=== PATIENT | male | born 1960 | race Two or more races ===

== ENCOUNTER 2017-06-04 13:23 | Emergency (ER) | payer BC, OTHER ==
[2017-06-04 13:36] VITALS: TEMP 98.6; BMI 25.7
--- NOTE | 2017-06-04 13:40 | PDOC ---
History of Present Illness - General History Source: Patient Exam Limitations: No Limitations - History of Present Illness Initial Comments: 06/04/17 13:47 The patient is a 56 year old male, with a significant past medical history of HTN, who presents to the emergency department with cough, fever, nausea, and vomiting since Monday. The patient reports seeing his doctor the same day of the onset of his symptoms and being prescribed antibiotics. He reports since having ongoing coughing and developing chest pain on monday. He describes his pain as a discomfort, ranking his chest pain a 6/10 in pain intensity. He denies any recent fevers, chills, headache or dizziness. He denies any recent nausea, vomit, diarrhea or constipation. He denies any recent shortness of breath. He denies any recent dysuria, frequency, urgency or hematuria. Allergies: NKA Past surgical history: None reported. Social History: Nonsmoker. Denies EtOH use and recreational drug use. Primary Care Physician: <Rom Barajas - Last Filed: 06/04/17 13:49> <Alis Beltran - Last Filed: 06/04/17 15:55> - General Chief Complaint: Chest Pain Stated Complaint: CHEST PAIN Time Seen by Provider: 06/04/17 13:40 Past History <Rom Barajas - Last Filed: 06/04/17 13:49> - Past Medical History COPD: No - Suicide/Smoking/Psychosocial Hx Smoking Status: No Smoking History: Never smoked Number of Cigarettes Smoked Daily: 0 Hx Alcohol Use: No Drug/Substance Use Hx: No Substance Use Type: None <Alis Beltran - Last Filed: 06/04/17 15:55> - Past Medical History Allergies/Adverse Reactions: Allergies Allergy/AdvReac Type Severity Reaction Status Date / Time No Known Allergies Allergy Verified 06/04/17 13:36 Home Medications: Ambulatory Orders Losartan Potassium [Cozaar -] 50 mg PO DAILY 06/04/17 Review of Systems - Review of Systems Comments:: 06/04/17 13:47 GENERAL/CONSTITUTIONAL: +fever and chills. No weakness. HEAD, EYES, EARS, NOSE AND THROAT: No change in vision. No ear pain or discharge. No sore throat. CARDIOVASCULAR: + chest pain or shortness of breath. RESPIRATORY: No cough, wheezing, or hemoptysis. GASTROINTESTINAL: +nausea, vomiting No diarrhea or constipation. GENITOURINARY: No dysuria, frequency, or change in urination. MUSCULOSKELETAL: No joint or muscle swelling or pain. No neck or back pain. SKIN: No rash NEUROLOGIC: No headache, vertigo, loss of consciousness, or change in strength/ sensation. ENDOCRINE: No increased thirst. No abnormal weight change. HEMATOLOGIC/LYMPHATIC: No anemia, easy bleeding, or history of blood clots. ALLERGIC/IMMUNOLOGIC: No hives or skin allergy <Rom Barajas - Last Filed: 06/04/17 13:49> *Physical Exam - Vital Signs Last Vital Signs Temp Pulse Resp BP Pulse Ox 98.6 F 74 20 156/95 98 06/04/17 13:32 06/04/17 13:32 06/04/17 13:32 06/04/17 13:32 06/04/17 13:32 - Physical Exam Comments: 06/04/17 13:49 GENERAL: Awake, alert, and fully oriented, in no acute distress HEAD: No signs of trauma EYES: PERRLA, EOMI, sclera anicteric, conjunctiva clear ENT: Auricles normal inspection, hearing grossly normal, nares patent, oropharynx clear without exudates. Moist mucosa NECK: Normal ROM, supple, no lymphadenopathy, JVD, or masses LUNGS: Breath sounds equal, clear to auscultation bilaterally. No wheezes, and no crackles HEART: Regular rate and rhythm, normal S1 and S2, no murmurs, rubs or gallops ABDOMEN: Soft, nontender, normoactive bowel sounds. No guarding, no rebound. No masses EXTREMITIES: Normal range of motion, no edema. No clubbing or cyanosis. No cords, erythema, or tenderness NEUROLOGICAL: Cranial nerves II through XII grossly intact. Normal speech, normal gait SKIN: Warm, Dry, normal turgor, no rashes or lesions noted. <Rom Barajas - Last Filed: 06/04/17 13:49> - Vital Signs Last Vital Signs Temp Pulse Resp BP Pulse Ox 98.6 F 74 20 156/95 98 06/04/17 13:32 06/04/17 13:32 06/04/17 13:32 06/04/17 13:32 06/04/17 13:32 <Alis Beltran - Last Filed: 06/04/17 15:55> ED Treatment Course - LABORATORY CBC & Chemistry Diagram: 06/04/17 14:51 06/04/17 13:50 <Ails Beltran - Last Filed: 06/04/17 15:55> Medical Decision Making - Medical Decision Making 06/04/17 13:59 Pt presents to the ED complaining of a 5 day history of intermittent chest discomfort. Cannot identify aggravating or alieviating factors. Pain is moderate in severity and non radiating. Became ill 6 days ago with fevers, chills and prodcutive cough. Then presented to his PMD who treated him with levaquin. The fevers and chills have now resolved, butthe chest discomfort is persistent, so patient presented to the ED. Will check CXR to evaluate for persistent PNA. EKG shows no evidence of ischemia, but will check CE to rule out ACS. Pain is very atypical of cardiac disease--if labs are within normal limits will discharge home. 06/04/17 15:52 Labs and CXR are negative. HEART score is 2. Will discharge patient home with instructions to follow up with his PMD within one week. <Alis Beltran - Last Filed: 06/04/17 15:55> *DC/Admit/Observation/Transfer - Attestations Scribe Attestion: 06/04/17 13:47 Documentation prepared by Rom Barajas, acting as medical biller coder for Alis Beltran MD. <Rom Barajas - Last Filed: 06/04/17 13:49> - Discharge Dispostion Admit: No <Alis Beltran - Last Filed: 06/04/17 15:55> Diagnosis at time of Disposition: Chest pain Qualifiers: Chest pain type: precordial pain Qualified Code(s): R07.2 - Precordial pain - Discharge Dispostion Disposition: HOME Condition at time of disposition: Good - Patient Instructions Printed Discharge Instructions: DI for Chest Pain Additional Instructions: Return to the ED for severe chest pain or shortness of breath, recurrrent fevers , persistent shortness of breath. Make sure that you follow up with your PMD this week.
--- NOTE | 2017-06-04 14:44 | EKG ---
Test Reason : Blood Pressure : / mmHG Vent. Rate : 073 BPM Atrial Rate : 073 BPM P-R Int : 150 ms QRS Dur : 078 ms QT Int : 378 ms P-R-T Axes : 042 042 004 degrees QTc Int : 416 ms NORMAL SINUS RHYTHM POSSIBLE LEFT ATRIAL ENLARGEMENT NONSPECIFIC T WAVE ABNORMALITY ABNORMAL ECG NO PREVIOUS ECGS AVAILABLE CLINICAL CORRELATION IS RECOMMENDED Confirmed by ARUNA RUANO MD ([id number]) on 06/04/2017 2:44:16 PM Referred By: Confirmed By:ARUNA RUANO MD
[2017-06-04 14:45] LABS: ALBUMIN 3.6 g/dl (3.4-5.0); ANION GAP 8 (8-16); BILIRUBIN,TOTAL 0.5 mg/dL (0.2-1.0); BLOOD UREA NITROGEN 10 mg/dL (7-18); CALCIUM 7.9 mg/dL (8.5-10.1); CHLORIDE 104 mmol/L (98-107); CO2 26 mmol/L (21-32); CREATININE 0.9 mg/dL (0.7-1.3); GLUCOSE,RANDOM 113 mg/dL (74-106); SGPT/ALT 41 U/L (12-78); SODIUM 138 mmol/L (136-145); TOT PROT 6.7 g/dl (6.4-8.2)
[2017-06-04 14:53] LABS: ALK PHOS 48 U/L (45-117)
[2017-06-04 14:54] LABS: N-TERMINAL BNP 26.44 pg/ml (5-125); POTASSIUM 3.6 mmol/L (3.5-5.1); SGOT/AST 29 U/L (15-37)
[2017-06-04 15:08] LABS: BASO % 1.1 % (0-2.0); EOS % 3.6 % (0-4.5); HEMOGLOBIN 15.4 GM/dL (11.7-16.9); LYMPH % 34.2 % (8-40); MCH 29.9 pg (25.7-33.7); MCHC 33.6 g/dl (32.0-35.9); MEAN CELL VOLUME 89.1 fl (80-96); MEAN PLT VOLUME 9.4 fl (7.5-11.1); MONO % 17.2 % (3.8-10.2); NEUT % 43.9 % (42.8-82.8); PLATELET COUNT 114 K/MM3 (134-434); RBC 5.16 M/mm3 (4.00-5.60); RDW 12.8 % (11.9-15.9)
[2017-06-04 16:24] VITALS: BP 135/78; PULSE 69
== END 2017-06-04 16:20 | disposition home or self-care (01) ==
LOC: JER 13:23
DX: R07.2 Precordial pain (principal)
CPT/HCPCS: 36415; 71020-TC; 80053; 82550; 83880; 84484; 85025; 93005; 93010; 99283-25

== ENCOUNTER 2018-08-29 13:41 | Emergency (ER) | payer OTHER ==
[2018-08-29 14:05] VITALS: BP 168/84; PULSE 69; TEMP 98.2; BMI 25.7
--- NOTE | 2018-08-29 14:06 | PDOC ---
Rapid Medical Evaluation Time Seen by Provider: 08/29/18 14:02 Medical Evaluation: Allergies Allergy/AdvReac Type Severity Reaction Status Date / Time No Known Allergies Allergy Verified 06/04/17 13:36 08/29/18 14:02 The patient presents to the ED for evaluation of metal in the L eye. Pt works as an low voltage electrician. Feels like something got in the eye two day ago Exam: MICAH LEE. No FB present in the L eye Orders: Nothing Pt to proceed to the ED for further evaluation Discharge Disposition - Diagnosis Left eye pain - Referrals - Patient Instructions - Post Discharge Activity
--- NOTE | 2018-08-29 15:25 | PDOC ---
History of Present Illness - General Chief Complaint: Eye Problem Stated Complaint: LT EYE INJURY Time Seen by Provider: 08/29/18 14:02 - History of Present Illness Initial Comments: 08/29/18 15:21 57-year-old male with a past medical history significant for hypertension presents for evaluation of left eye irritation. He states he was working with metal and feels he got a piece of metal stuck in his eye. No fever no visual changes just L eye irritation and tearing Past History - Past Medical History Allergies/Adverse Reactions: Allergies Allergy/AdvReac Type Severity Reaction Status Date / Time No Known Allergies Allergy Verified 08/29/18 14:05 Home Medications: Ambulatory Orders Losartan Potassium [Cozaar -] 50 mg PO DAILY 06/04/17 Tobramycin 0.3% Ophth Soln [Tobrex Ophthalmic Solution -] 1 drop OS Q4HWA 5 Days #1 bottle 08/29/18 COPD: No - Suicide/Smoking/Psychosocial Hx Smoking Status: No Smoking History: Never smoked Number of Cigarettes Smoked Daily: 0 Hx Alcohol Use: No Drug/Substance Use Hx: No Substance Use Type: None Review of Systems - Review of Systems Constitutional: No: Fever HEENTM: Yes: Tearing. No: Eye Pain, Blurred Vision, Recent change in vision, Double Vision *Physical Exam - Vital Signs Last Vital Signs Temp Pulse Resp BP Pulse Ox 98.2 F 69 18 168/84 99 08/29/18 14:03 08/29/18 14:03 08/29/18 14:03 08/29/18 14:03 08/29/18 14:03 - Physical Exam Comments: 08/29/18 15:22 HEAD: NC/AT EYES: Conjuntiva normal in the right eye injected in the left. Tetracaine drops instilled. Fluorescein stain done. No corneal abrasion or foreign body appreciated. MS: Full ROM in all joints without edema NEUROLOGIC: No gross sensory or motor deficits, NVID SKIN: Normal color and temperature no lesions or rashes Medical Decision Making - Medical Decision Making 08/29/18 15:23 No foreign body appreciated. I will give tobramycin drops and have patient follow-up with ophthalmology tomorrow. It's been 4 days at this point. *DC/Admit/Observation/Transfer Diagnosis at time of Disposition: Left eye pain, Acute allergic conjunctivitis of left eye - Discharge Dispostion Disposition: HOME Condition at time of disposition: Stable Decision to Admit order: No - Referrals Referrals: Tyrone Leigh MD [Primary Care Provider] - Bernardino Kumar MD [Non Staff, Medical] - Ivan Harvey [Non Staff, Medical] - Pedro Lui [Non Staff, Medical] - Erlin Clifford [Staff Physician] - Taniya Juarez MD [Staff Physician] - William Lazcano MD [Non Staff, Medical] - Haresh Garcia [Non Staff, Medical] - Diego Akbar [Non Staff, Medical] - Kel Belle [Non Staff, Medical] - Donna Nina DO [Non Staff, Medical] - Gabriela Hyatt MD [Non Staff, Medical] - Leah Webster MD [Staff Physician] - Julian Patino MD, MD [Non Staff, Medical] - Laurita Hicks MD [Non Staff, Medical] - Collin Cosme MD [Staff Physician] - Paige Rey MD [Non Staff, Medical] - Peter Taylor MD [Staff Physician] - Grady Teixeira MD, MD [Non Staff, Medical] - Brandi Novoa MD [Non Staff, Medical] - Deya Ureña MD [Non Staff, Medical] - Pritesh Newby MD [Non Staff, Medical] - Aristeo Pino [Non Staff, Medical] - Stevo Samayoa MD [Staff Physician] - DARRYN SAMUELS [Non Staff, Medical] - Peter Parsons MD [Staff Physician] - Gualberto Burkett [Staff Physician] - Cari Huddleston MD [Staff Physician] - Hermann Polanco [Non Staff, Medical] - Kel Wells MD [Non Staff, Medical] - Castillo Hanson Jr, MD [Staff Physician] - Richard Lopes [Non Staff, Medical] - Duarte Koch [Non Staff, Medical] - Rosalino Huggins MD [Non Staff, Medical] - Krishan Huggins [Non Staff, Medical] - Hermann Ambriz [Non Staff, Medical] - Mata Milian [Non Staff, Medical] - Gualberto Koehler [Non Staff, Medical] - Maxwell Bacon MD [Non Staff, Medical] - Clive Miner [Staff Physician] - Ernestina Melara MD [Non Staff, Medical] - Lavon Mckay [Non Staff, Medical] - Jeffrey Peraza MD [Non Staff, Medical] - Aristeo Dukes MD [Non Staff, Medical] - Bertram Colón MD [Non Staff, Medical] - Pedro Peck [Non Staff, Medical] - Joe Mccallum MD [Non Staff, Medical] - Juhi Arriaga MD [Non Staff, Medical] - Brittani Rizzo MD [Staff Physician] - Krysten Gavin MD [Non Staff, Medical] - - Patient Instructions Printed Discharge Instructions: Conjunctivitis, DI for Conjunctivitis Additional Instructions: I've given you list of local ophthalmologists in the area. Please follow-up with ophthalmology tomorrow for further evaluation and treatment options. Return to the emergency room for worsening symptoms. Use the antibiotic drops as directed for the next 5 days. - Post Discharge Activity
== END 2018-08-29 15:36 | disposition home or self-care (01) ==
LOC: JERFT 13:41
DX: H10.12 Acute atopic conjunctivitis, left eye (principal); I10 Essential (primary) hypertension; H04.209 Unspecified epiphora, unspecified side
CPT/HCPCS: 99281-25

== ENCOUNTER 2021-10-29 04:10 | Day surgery (SDC) | payer OTHER ==
[2021-10-28 10:30] VITALS: BMI 23.6
[2021-10-29] MEDS ORDERED: LIDOCAINE HCL/PF 1% SDV 5ML VIAL ONE (12:11)
[2021-10-29] MEDS ORDERED: DEXAMETHASONE SOD PHOSPHATE 10 MG/1 ML VIAL ONE (12:11)
[2021-10-29] MEDS ORDERED: DEXAMETHASONE SOD PHOSPHATE 10 MG/1 ML VIAL IVPUSH ONE (12:19)
[2021-10-29] MEDS ORDERED: IOHEXOL 180 MG/1 ML ML IJ ONE (12:20)
[2021-10-29] MEDS ORDERED: LIDOCAINE 1% P/F 10 MG/ML VIAL INF ONE (12:20)
[2021-10-29 13:00] VITALS: BP 151/78; PULSE 70; TEMP 97.8
== END 2021-10-29 12:55 | disposition home or self-care (01) ==
LOC: JASU-SURG 04:10
PROVIDERS: ATTEND Pain Medicine Pain Medicine
PROC: 3E0R33Z Introduction of Anti-inflammatory into Spinal Canal, Percutaneous Approach (ICD-10-PCS; 2021-10-29)
PROC: 3E0R3BZ Introduction of Anesthetic Agent into Spinal Canal, Percutaneous Approach (ICD-10-PCS; principal; 2021-10-29 14:00)
DX: M54.16 Radiculopathy, lumbar region (principal); I10 Essential (primary) hypertension
CPT/HCPCS: 76000-TC-FY; J1100

== ENCOUNTER 2021-11-13 09:15 | Emergency (ER) | payer OTHER ==
[2021-11-13 09:27] VITALS: BP 159/82; PULSE 76; TEMP 98.5; BMI 24.0
[2021-11-13] MEDS ORDERED: ONDANSETRON 4 MG/2 ML VIAL IVPUSH ONE (09:59)
[2021-11-13] MEDS ORDERED: SODIUM CHLORIDE 0.9% 1000 ML INFUS.BAG IV ONE (09:59)
[2021-11-13] MEDS ORDERED: ACETAMINOPHEN 1000 MG/100 ML BAG IVPB ONE (09:59)
[2021-11-13] MEDS ORDERED: MAG HYDROX/AL HYDROX/SIMETH -MYLANTA- ORAL SUSPENSION PO ONE (09:59)
[2021-11-13] MEDS ORDERED: FAMOTIDINE 20 MG/50 ML IVPB 20 MG/50 ML MG IVPB ONE ×2 (09:59→10:26)
[2021-11-13] MEDS ORDERED: ONDANSETRON 4 MG/2 ML VIAL ONE (10:25)
[2021-11-13] MEDS ORDERED: ACETAMINOPHEN INJECTION 100 ML IVPB ONE (10:25)
[2021-11-13] MEDS ORDERED: MAG HYDROX/AL HYDROX/SIMETH 30 ML UNIT-DOSE CUP ONE (10:25)
[2021-11-13 10:59] LABS: BASO % 0.7 % (0-2.0); HEMATOCRIT 40.9 % (35.4-49); HEMOGLOBIN 14.1 GM/dL (11.7-16.9); MCHC 34.5 g/dl (32.0-35.9); MEAN CELL VOLUME 87.2 fl (80-96); MEAN PLT VOLUME 8.7 fl (7.5-11.1); MONO % 23.4 % (3.8-10.2); NEUT % 34.9 % (42.8-82.8); PLATELET COUNT 200 10^3/uL (134-434); RDW 12.1 % (11.9-15.9); WHITE BLOOD COUNT 4.4 K/mm3 (4.0-10.0)
[2021-11-13] MEDS ORDERED: SIMETHICONE 80 MG TAB.CHEW (FP) PO ONE (11:12)
[2021-11-13 11:27] LABS: CALCIUM 8.1 mg/dL (8.5-10.1)
[2021-11-13 11:28] LABS: BLOOD UREA NITROGEN 9.6 mg/dL (7-18)
[2021-11-13 11:30] LABS: CREATININE 0.8 mg/dL (0.55-1.3)
[2021-11-13 11:32] LABS: BILIRUBIN,TOTAL 0.4 mg/dL (0.2-1); TOT PROT 5.8 g/dl (6.4-8.2)
[2021-11-13 11:47] LABS: URINE APPEARANCE CLEAR; URINE BILIRUBIN NEGATIVE (NEGATIVE); URINE COLOR YELLOW; URINE GLUCOSE (UA) NEGATIVE (NEGATIVE); URINE KETONE TRACE (NEGATIVE); URINE LEUK ESTERASE NEGATIVE (NEGATIVE); URINE NITRITE NEGATIVE (NEGATIVE); URINE PROTEIN NEGATIVE (NEGATIVE)
[2021-11-13] MEDS ORDERED: SIMETHICONE 80 MG TAB.CHEW (FP) ONE (15:32)
== END 2021-11-13 15:46 | disposition home or self-care (01) ==
LOC: JER 09:15
PROC: 3E0333Z Introduction of Anti-inflammatory into Peripheral Vein, Percutaneous Approach (ICD-10-PCS; principal; 2021-11-13)
PROC: 3E033GC Introduction of Other Therapeutic Substance into Peripheral Vein, Percutaneous Approach (ICD-10-PCS; 2021-11-13)
PROC: 3E033GC Introduction of Other Therapeutic Substance into Peripheral Vein, Percutaneous Approach (ICD-10-PCS; 2021-11-13)
DX: R10.33 Periumbilical pain (principal); R11.0 Nausea; R63.0 Anorexia
CPT/HCPCS: 0241U-QW; 36415; 71045-TC-FY; 74177-TC; 80053; 81003; 83690; 84484; 85025; 93005; 93010; 99285-25; Q9967